=== PATIENT | male | born 1955 | race Caucasian/White ===

== ENCOUNTER 2018-03-28 11:16 | Inpatient (IN) | payer BC ==
[~2018-03-28] VITALS: Ht 170.2 cm; Wt 98.9 kg
[2018-03-28 11:20] VITALS: BP 159/78
--- NOTE | 2018-03-28 11:20 | NUR ---
PT AMBULATE WITH SON'S ASSISTANCE TO BED 10, REPORT GIVEN TO JOSE CHAUHAN
--- NOTE | 2018-03-28 11:30 | NUR ---
62Y/M BIB SON WITH C/O RT SIDED WEAKNESS SINCE 0100 THIS MORNING. PT STATES " HE STARTED HAVING CP AT 0100 THIS MORNING, MECHNICAL FALL WHILE GOING TO THE BATHROOM THIS MORNING AT 0600, FELT DIZZINESS AFTER FALL, NO LOC AT THE TIME OF FALL. PT HAS NO CP AT THIS TIME, PT DOES FEEL WEAKNESS TO THE RIGHT ARM." PT DENIES V/D; SKIN IS PINK/WARM/DRY; AAOX4 WITH EVEN AND STEADY GAIT; LUNGS CLEAR BL; HR EVEN AND REGULAR; PT DENIES ANY FEVER, CP, SOB, OR COUGH AT THIS TIME; PATIENT STATES PAIN OF 0/10 AT THIS TIME; VSS; PATIENT POSITIONED FOR COMFORT; HOB ELEVATED; BEDRAILS UP X; BED DOWN. ER MD MADE AWARE OF PT STATUS. HX; DM, HTN RX; GLYBURIDE, TAMSULOSIN, DOXAZOSIN, AMLOPIDINE
--- NOTE | 2018-03-28 11:45 | NUR ---
Patient being evaluated by physician at bedside.
--- NOTE | 2018-03-28 11:46 | NUR ---
pt taken to ct
--- NOTE | 2018-03-28 11:56 | NUR ---
pt back from ct
[2018-03-28 12:17] LABS: BASOPHILS # (AUTO) 0.1 K/uL (0.00-0.22); BASOPHILS % (AUTO) 1.1 % (0.0-2.0); EOSINOPHILS # (AUTO) 0.1 K/uL (0-0.4); EOSINOPHILS % (AUTO) 0.9 % (0.0-4.0); HEMATOCRIT 42.9 % (36-52); HEMOGLOBIN 14.5 g/dL (12.0-18.0); LYMPHOCYTES # (AUTO) 1.4 K/uL (2.0-11.5); LYMPHOCYTES % (AUTO) 19.9 % (20.5-51.1); MEAN CORPUSCULAR HEMOGLOBIN 31 pg (27-31); MEAN CORPUSCULAR HGB CONC 34 g/dL (33-37); MEAN CORPUSCULAR VOLUME 90.4 fL (80-94); MONOCYTES # (AUTO) 0.5 K/uL (0.8-1.0); MONOCYTES % (AUTO) 7.1 % (1.7-9.3); NEUTROPHILS # (AUTO) 5.1 K/uL (1.8-7.7); PLATELET COUNT (AUTO) 252 K/uL (140-450); RED BLOOD CELL COUNT(AUTO) 4.75 MIL/uL (4.20-6.10); RED CELL DISTRIBUTION WIDTH 13.3 % (11.6-13.7); WHITE BLOOD COUNT (AUTO) 7.2 K/uL (4.8-10.8)
[2018-03-28 12:39] LABS: ANION GAP 13.8 (8-16); CARBON DIOXIDE 26.6 mmol/L (21-32); CREATININE 0.9 mg/dL (0.7-1.3); POTASSIUM 3.4 mmol/L (3.5-5.1)
[2018-03-28 12:44] LABS: ALBUMIN 3.8 g/dL (3.4-5.0); TOTAL BILIRUBIN 0.2 mg/dL (0.0-1.0)
[2018-03-28 12:50] LABS: PROTHROMBIN TIME 10.7 secs (10.8-13.4)
[2018-03-28] MEDS ORDERED: ZOLPIDEM 5 MG TAB PO PRN (13:30)
[2018-03-28] MEDS ORDERED: DOCUSATE SODIUM 100 MG GELCAP PO PRN (13:30)
[2018-03-28] MEDS ORDERED: LORazepam 2 MG/ML VIAL IM/IVP PRN (13:30)
[2018-03-28] MEDS ORDERED: MORPHINE SULFATE 2 MG/ML SYR IVP PRN (13:30)
[2018-03-28] MEDS ORDERED: ONDANSETRON 4 MG/2 ML VIAL IM/IVP PRN (13:30)
[2018-03-28] MEDS ORDERED: ACETAMINOPHEN 325 MG TAB PO PRN (13:30)
[2018-03-28] MEDS ORDERED: HYDROcodone/APAP 5/325 MG 1 TAB TAB PO PRN (13:30)
[2018-03-28] MEDS ORDERED: ASPIRIN 325 MG TABEC PO ONE (13:40)
[2018-03-28 14:35] LABS: MAGNESIUM 1.7 mg/dL (1.8-2.4); THYROID STIMULATING HORMONE 1.24 uIU/mL (0.34-3.74)
--- NOTE | 2018-03-28 14:44 | NUR ---
Patient will be admitted to care of . Admited to tele floor. Will go to room 106 a. Belongings list completed. Report to delmy malik.
[2018-03-28] MEDS ORDERED: MECLIZINE 25 MG TAB PO PRN (15:05)
[2018-03-28 15:15] VITALS: BP 152/71
--- NOTE | 2018-03-28 15:15 | NUR ---
PATIENT ADMITTED TO THE UNIT. PATIENT AWAKE, ALERT AND ORIENTED. NO S/S OF DISTRESS. PATIENT ON ROOM AIR NO SOB. PATIENT DENIES PAIN AT THIS TIME. RIGHT SIDED WEAKNESS NOTED. PATIENT ABLE TO AMBULATE WITH ASSIST. NO FACIAL DROOP NOTED. PATIENT PLACED ON TELE MONITORING. BED LOWERED WITH CALL LIGHT WITHIN REACH. WILL CONTINUE TO MONITOR
[2018-03-28] MEDS ORDERED: MAG SULF 2000 MG/WATER PREMIX 50 ML IV ONE (16:30)
--- NOTE | 2018-03-28 16:57 | NUR ---
RECEIVED ORDER FOR MRI STAT. I CALLED GEORGE FROM RADIOLOGY AND SHE INFORMED ME THAT HER TECH FOR THE MRI LEAVES AT 6P.M., BU THEY COULD DO THE MRI IN THE MORNING. I CALLED DR. BAUM AND INFORMED HIM. I ALSO CALLED [facility]ULI[facility] GODOY,AND SPOKE CATARINO THE ROLL UP MACHINE OPERATOR. AND THEIR TECH FOR THE MRI WORKS ONLY M-F 8A.M. TIL 12P.M. I INFORMED DR. BAUM AND SHE SAID TO TRY TO TRANSFER THIS PATIENT TO [facility] OR [facility]. I CALL [facility] AND SPOKE WITH SANDY. THEY HAVE NO TELE BEDS. SHE DIDN'T TAKE THE PATIENT'S NAME AND INFORMATION. I CALLED [facility] AND SPOKE WITH KRISTAL. I FAXED HER FACE SHEET. SHE SAID SHE STILL NEEDS AN ACCEPTING PHYSICIAN TO CALL. AT PRESENT THEY HAVE NO TELEMETRY BEDS. I ASKED KRISTAL IF WE COULD SENT THE PATIENT TO [facility] JUST TO GET THE MRI. THEY CANNOT, SHE HAD ME SPEAK WITH SANDY THE ROLL UP MACHINE OPERATOR. SHE SAID SHE MIGHT HAVE A BED IN A COUPLE OF HOURS BUT STILL NEEDS AN ACCEPTING PHYSICIAN TO CALL THEM. I INFORMED DR. BAUM AND HE SAID HE WOULD CALL DR. LAGUERRE. DR. BAUM CALLED ME AND SAID THAT DR. LAGUERRE WILL ACCEPT THE PATIENT AND HE WILL CALL ADMITTING AT [facility]. I CALLED [facility] AND INFORMED SANDY THAT DR. LAGUERRE WILL BE CALLING TO BE THE ACCEPTING. I CALLED ADMITTING AND SPOKE WITH KRISTAL AND INFORMED HER TO CALL THE FLOOR WHEN THEY GET A BED., [phone].
[2018-03-28] MEDS: DEXT 5% / NACL 0.45% 1,000 ML IV SCH (17:02)
[2018-03-28] MEDS ORDERED: KCL 20 MEQ/WATER INJ PREMIX 100 ML IV SCH (17:30)
[2018-03-28] MEDS ORDERED: glyBURIDE 5 MG TAB PO SCH (18:45)
[2018-03-28] MEDS ORDERED: metFORMIN 500 MG TAB PO SCH (18:45)
[2018-03-28] MEDS ORDERED: TAMSULOSIN 0.4 MG CAP PO SCH (18:45)
[2018-03-28] MEDS ORDERED: GLYB1TAB2 PO (18:52)
[2018-03-28] MEDS ORDERED: DOXA2TAB1 PO (18:52)
[2018-03-28] MEDS ORDERED: TAMS0.4C96 PO (18:52)
[2018-03-28] MEDS ORDERED: AMLO10TA1 PO (18:52)
--- NOTE | 2018-03-28 19:20 | NUR ---
PATIENT REPORT GIVEN AT BEDSIDE. PATIENT ENDORSED IN STABLE CONDITION
--- NOTE | 2018-03-28 19:21 | NUR ---
REPORT RECEIVED FROM AM NURSE AT BEDSIDE. PT IN STABLE CONDITION. AAOX4. INTRODUCED SELF TO PT AND FAMILY. PT IS FALL RISK DUE TO RIGHT SIDED WEAKNESS R/T DX OF CVA. IV SITE L HAND 22G RUNNING D5 1/2NS @60ML/HR AND IS PATENT AND INTACT. SKIN WARM, DRY, AND INTACT WITH NO OPEN WOUNDS. BED LOCKED IN LOW POSITION. CALL GRIFFIN WITHIN REACH.
[2018-03-28 20:00] VITALS: BP 156/88
[2018-03-28] MEDS: glyBURIDE 5 MG TAB PO SCH (20:00)
[2018-03-28] MEDS ORDERED: TAMSULOSIN 0.4 MG CAP ONE (20:02)
[2018-03-28] MEDS ORDERED: metFORMIN 500 MG TAB ONE (20:04)
--- NOTE | 2018-03-28 20:05 | NUR ---
GLUCOPHAGE AND FLOMAX GIVEN. PT TOLERATED WELL. GLYBURIDE NOT GIVEN DUE TO PYXIS NOT ALLOWING ME TO PULL IT OUT. PHARMACY WAS CALLED AND NOTIFIED ABOUT THE PROBLEM. COULD NOT FIX. Addendum: 03/29/18 at 0342 by Osmani Boggs RN FIRST DOSE OF MAG WAS GIVEN.
[2018-03-28] MEDS: metFORMIN 500 MG TAB PO SCH (20:08)
[2018-03-28] MEDS: TAMSULOSIN 0.4 MG CAP PO SCH (20:09)
[2018-03-28] MEDS: MAGNESIUM SULFATE 1GM in DEXTROSE 5% 100 ML PREMIX IV SCH ×2 (20:09→21:51)
--- NOTE | 2018-03-28 21:50 | NUR ---
SECOND BAG OF MAG HUNG. PT TOLERATED WELL.
--- NOTE | 2018-03-28 22:45 | NUR ---
CRITICAL LAB VALUE CALLED IN FROM LAB. TROPONIN [phone]. MD NOTIFIED. NO NEW ORDERS.
--- NOTE | 2018-03-28 23:00 | NUR ---
SAT PT UP AND AIDED HIM IN USING THE URINAL. PT ABLE TO CLEAN HIMSELF WITH TOWELETTES.
[2018-03-29] VITALS: BP 155/72
--- NOTE | 2018-03-29 02:30 | NUR ---
PT REQUESTED HELP FOR USING URINAL IN BED. SAT HIM AT THE EDGE OF THE BED. PT USED WIPES TO CLEAN HIMSELF.
[2018-03-29 04:00] VITALS: BP 157/77
--- NOTE | 2018-03-29 04:30 | NUR ---
PT VS STABLE. NO S/S OF DISTRESS.
[2018-03-29 07:01] LABS: BASOPHILS # (AUTO) 0.1 K/uL (0.00-0.22); BASOPHILS % (AUTO) 1.3 % (0.0-2.0); EOSINOPHILS # (AUTO) 0.2 K/uL (0-0.4); EOSINOPHILS % (AUTO) 3.2 % (0.0-4.0); HEMATOCRIT 41.8 % (36-52); HEMOGLOBIN 14.1 g/dL (12.0-18.0); LYMPHOCYTES % (AUTO) 28.8 % (20.5-51.1); MEAN CORPUSCULAR HEMOGLOBIN 31 pg (27-31); MEAN CORPUSCULAR HGB CONC 34 g/dL (33-37); MEAN CORPUSCULAR VOLUME 91.3 fL (80-94); MONOCYTES # (AUTO) 0.6 K/uL (0.8-1.0); MONOCYTES % (AUTO) 8.1 % (1.7-9.3); NEUTROPHILS % (AUTO) 58.6 % (42.2-75.2); PLATELET COUNT (AUTO) 244 K/uL (140-450); RED BLOOD CELL COUNT(AUTO) 4.58 MIL/uL (4.20-6.10); RED CELL DISTRIBUTION WIDTH 13.3 % (11.6-13.7); WHITE BLOOD COUNT (AUTO) 6.9 K/uL (4.8-10.8)
--- NOTE | 2018-03-29 07:25 | NUR ---
REPORT GIVEN TO AM NURSE AT BEDSIDE. PT IN STABLE CONDITION.
--- NOTE | 2018-03-29 07:26 | NUR ---
RECEIVED SBAR REPORT FROM NIGHT RN AT PT BEDSIDE. PATIENT IS ALERT AND ORIENTED. DENIES PAIN. ON ROOM AIR, NO S/S OF ACUTE DISTRESS NOTED. PATIENT ADMITTED CVA WITH RIGHT SIDED WEAKNESS. PATIENT HAS MODERATE STRENGTH BUE/BLE. PATIENT STATES FEELING WEAKER ON RIGHT SIDE. SYMMETRICAL FACIAL MOVEMENTS WITH SMILE, FALL PRECAUTION IN PLACE. PATIENT IS AMBULATORY WITH ASSIST. IV SITE PATENT AND INTACT. CALL LIGHT WITHIN REACH. PATIENT SCHEDULED FOR TRANSFER FOR MRI PROCEDURE.
--- NOTE | 2018-03-29 07:36 | NUR ---
CALLED GEORGE FROM [facility] ABOUT MRI. SHE SAID TO SCHEDULE KAR[facility] BRIAN AND FAX ORDER AND INFORMATION TO [facility] AT [phone]. I CALLED SANDY AT RADIOLOGY AND FAXED INFORMATION. I CALLED KARIN AND SET UP ALS PICKUIP FOR 1 HOUR. I CALLED SANDY AT [facility] AND INFORMED HER OF THE TIME OF PICKUP. Addendum: 03/29/18 at 0758 by Nancy Jackson CM LESLIE HDZ [facility], NOT SANDY
[2018-03-29 08:00] VITALS: BP 169/86
[2018-03-29] MEDS: metFORMIN 500 MG TAB PO SCH ×3 (08:00→16:29)
[2018-03-29] MEDS: glyBURIDE 5 MG TAB PO SCH ×3 (08:00→16:29)
[2018-03-29 08:27] LABS: T4 (THYROXINE) 6.5 ug/dL (4.5-12.0)
--- NOTE | 2018-03-29 08:40 | NUR ---
MEDICATED ORDERED WITH ATIVAN PO FOR ANXIETY. PATIENT PICKED UP BY [facility]. NO ACUTE DISTRESS NOTED.
--- NOTE | 2018-03-29 08:41 | NUR ---
RECEIVED A CALL FROM GEORGE FROM [facility]. SHE SAID THE PATIENT PUT ON HIS QUESTIONNAIRE THAT HE WAS CLAUSTRIPHOBIC DR. SAUER AND I SPOKE WITH THE PATIENT AND HE SAID HE WAS OKAY, SINCE HE HAD CT'S WITH NO PROBLEM. DR. GONSALEZ LATER SPOKE WITH THE PATIENT AND THE PATIENT WAS AGREEABLE TO TAKE SOMETHING TO HELP HIM RELAX, I CALLED [facility] AND INFORMED RODNEY THAT HE WAS TAKING SOMETHING TO HELP HIM RELAX. SHE SAID TO HAVE [facility] STOP IN ADMITTING FIRST, THEN TO OP SURGERY UNTIL THE TECH GET THERE.
[2018-03-29] MEDS ORDERED: LORazepam 1 MG TAB PO SCH (08:45)
--- NOTE | 2018-03-29 08:48 | NUR ---
RECEIVED A CALL EARLIER FROM ADMITTING AT [facility] AND I GAVE THEM THE POLICY NUMBER FOR THIS PATIENT FOR [facility].
[2018-03-29 08:57] LABS: ANION GAP 13.6 (8-16); CHOL/HDL RATIO 5.3 (1-4.5); CREATININE 0.9 mg/dL (0.7-1.3); POTASSIUM 3.6 mmol/L (3.5-5.1)
[2018-03-29 09:00] LABS: MAGNESIUM 2.4 mg/dL (1.8-2.4); PHOSPHORUS 2.8 mg/dL (2.5-4.9)
[2018-03-29] MEDS ORDERED: ASPIRIN 325 MG TABEC PO SCH (09:00)
--- NOTE | 2018-03-29 09:00 | NUR ---
SPOKE WITH PATIENT'S SON BUZZ AUSTINIbis UPDATED WITH CURRENT PLAN OF CARE, IN AGREEMENT.
--- NOTE | 2018-03-29 09:25 | NUR ---
PATIENT HAS BEEN SCREENED AND CATEGORIZED MODERATE NUTRITION RISK. PATIENT WILL BE SEEN WITHIN 3-5 DAYS OF ADMISSION. 03/31/18 - 04/02/[address]
[2018-03-29 12:00] VITALS: BP 152/83
[2018-03-29] MEDS ORDERED: DEXTROSE 50% 50 ML SYR IVP PRN ×2 (12:55→15:20)
--- NOTE | 2018-03-29 13:00 | NUR ---
PATIENT RETURNED FROM [facility] FOR MRI. PATIENT ALERT AND ORIENTED. DENIES DISCOMFORT. PATIENT STATES FEELING DIZZY STILL FROM MEDICATION PRIOR. NO ACUTE DISTRESS NOTED, ON ROOM AIR. RESULTS GIVEN TO RADIOLOGY.
[2018-03-29] MEDS: DEXT 5% / NACL 0.45% 1,000 ML IV SCH (13:08)
[2018-03-29] MEDS: DOXAZOSIN 2 MG TAB PO SCH (13:09)
[2018-03-29] MEDS: TAMSULOSIN 0.4 MG CAP PO SCH (13:10)
[2018-03-29] MEDS: amLODIPine 5 MG TAB PO SCH (13:10)
--- NOTE | 2018-03-29 13:20 | NUR ---
MRI RESULTS GIVEN TO DR. BAUM. SPOKE WITH DR. FUENTES AWAITING ORDERS.
[2018-03-29] MEDS ORDERED: hePARIN / DEXT 5% PREMIX 250 ML IV SCH (14:15)
[2018-03-29] MEDS ORDERED: HEPARIN PER PHARMACY MC PRN ×2 (14:15)
[2018-03-29] MEDS ORDERED: ATORVASTATIN 80 MG TAB PO SCH (15:15)
[2018-03-29] MEDS ORDERED: CALCIUM CARB/VIT-D 500 MG/200 IU 1 TAB PO SCH (15:18)
[2018-03-29] MEDS ORDERED: INSULIN LISPRO SLIDING SCALE 100 UNITS/ML VIAL SUBQ PRN (15:20)
[2018-03-29 16:00] VITALS: BP 160/86
--- NOTE | 2018-03-29 16:20 | NUR ---
PATIENT'S FAMILY AT BEDSIDE. DR. LOMELI SPOKE WITH PATIENT AND FAMILY AT BEDSIDE REGARDING PLAN OF CARE AND TEST RESULTS. PT AND FAMILY HAD OPPORTUNITIES TO ASK QUESTIONS AND CONCERNS, ALL NEEDS MET.
[2018-03-29] MEDS: NACL 0.9% 1,000 ML IV SCH (16:24)
[2018-03-29] MEDS: INSULIN LISPRO SLIDING SCALE 100 UNITS/ML VIAL SUBQ PRN ×2 (16:28→20:37)
[2018-03-29] MEDS: BLOOD GLUCOSE MONITORING 1 DEV DEV FS SCH ×4 (16:29→20:38)
[2018-03-29] MEDS ORDERED: BLOOD GLUCOSE MONITORING 1 DEV DEV FS SCH (16:30)
[2018-03-29] MEDS ORDERED: ASPIRIN 81 MG TAB.CHEW PO SCH (17:59)
[2018-03-29] MEDS ORDERED: LISINOPRIL 5 MG TAB PO SCH (18:00)
--- NOTE | 2018-03-29 18:38 | NUR ---
PATIENT RESTING IN BED. NEURO CHECKS PERFORMED, CONTINUES TO HAVE GENERALIZED WEAKNESS RUE/RLE. CLEAR SPEECH. SYMMETRY IN FACIAL MOVEMENTS.
--- NOTE | 2018-03-29 19:13 | NUR ---
SBAR REPORT GIVEN TO JOSE RACHEL AT PT BEDSIDE. NO ACUTE DISTRESS NOTED. PATIENT SEEN AMBULATING WITH ASSIST.
--- NOTE | 2018-03-29 19:14 | NUR ---
REPORT RECEIVED FROM AM NURSE AT BEDSIDE. PT IN STABLE CONDITION. AAO4. INTRODUCED SELF AND BOARD UPDATED. PT WENT TO [place] FOR AN MRI EARLIER TODAY AND WILL BE HERE FOR A FEW NIGHTS. MRI SHOWED LEFT SIDED INFARCTION. IV SITE R HAND 22G PATENT AND INTACT RUNNING NS@80ML/HR. SKIN WARM, DRY, AND INTACT WITH NO OPEN WOUNDS. BED LOCKED IN LOW POSITION. CALL GRIFFIN WITHIN REACH.
[2018-03-29 20:00] VITALS: BP 140/83
--- NOTE | 2018-03-29 20:35 | NUR ---
BS TAKEN. BS 151. 2 UNITS OF HUMALOG GIVEN. PT TOLERATED WELL.
--- NOTE | 2018-03-29 22:49 | NUR ---
REPORT GIVEN TO TAYLOR GARCIA FOR CONTINUITY OF CARE. PT IN STABLE CONDITION.
--- NOTE | 2018-03-29 22:50 | NUR ---
RECEIVED PT FROM [place]. PT IN STABLE CONDITION.
--- NOTE | 2018-03-29 23:53 | NUR ---
PT VS WITHIN NORMAL LIMITS. PT IS AT BEDSIDE USING URINAL. NO C/O PAIN AT THIS TIME. WILL CONTINUE TO MONITOR PT.
[2018-03-30] VITALS: BP 104/77
--- NOTE | 2018-03-30 01:10 | NUR ---
NEW IV STARTED IN R HAND 22G. L HAND IV DISCONTINUED. CANULA INTACT. PT TOLERATED WELL. WILL CONTINUE TO MONITOR.
--- NOTE | 2018-03-30 03:13 | NUR ---
PT ASLEEP IN BED. NO S/SX OF DISTRESS. WILL CONTINUE TO MONITOR.
[2018-03-30 04:00] VITALS: BP 117/74
[2018-03-30] MEDS: NACL 0.9% 1,000 ML IV SCH ×2 (05:13→18:28)
[2018-03-30] MEDS: BLOOD GLUCOSE MONITORING 1 DEV DEV FS SCH ×5 (05:15→21:20)
--- NOTE | 2018-03-30 05:15 | NUR ---
BS CHECKED, 129. PER MD ORDERS NO COVERAGE NEEDED. WILL CONTINUE TO MONITOR.
[2018-03-30 06:45] LABS: BASOPHILS # (AUTO) 0.1 K/uL (0.00-0.22); BASOPHILS % (AUTO) 1.1 % (0.0-2.0); EOSINOPHILS # (AUTO) 0.3 K/uL (0-0.4); EOSINOPHILS % (AUTO) 3.9 % (0.0-4.0); HEMATOCRIT 41.5 % (36-52); LYMPHOCYTES % (AUTO) 24.5 % (20.5-51.1); MEAN CORPUSCULAR HEMOGLOBIN 31 pg (27-31); MEAN CORPUSCULAR HGB CONC 34 g/dL (33-37); MEAN CORPUSCULAR VOLUME 90.8 fL (80-94); MONOCYTES # (AUTO) 0.7 K/uL (0.8-1.0); MONOCYTES % (AUTO) 8.1 % (1.7-9.3); NEUTROPHILS % (AUTO) 62.4 % (42.2-75.2); PLATELET COUNT (AUTO) 238 K/uL (140-450); RED BLOOD CELL COUNT(AUTO) 4.57 MIL/uL (4.20-6.10); RED CELL DISTRIBUTION WIDTH 13.2 % (11.6-13.7); WHITE BLOOD COUNT (AUTO) 8.1 K/uL (4.8-10.8)
--- NOTE | 2018-03-30 07:15 | NUR ---
ENDORSED PT TO DAY SHIFT NURSE FOR CONTINUITY OF CARE. PT IN STABLE CONDITION.
--- NOTE | 2018-03-30 07:16 | NUR ---
RECEIVED REPORT FROM SHARE HOLDER NURSE TYALOR AT BEDSIDE FOR CONTINUITY OF CARE. PT IS AAOX4. INTRODUCED SELF AND UPDATED BOARD. PT DENIES PAIN. REPORTED HE WAS HERE FOR R SIDED WEAKNESS ON R ARM. MILD WEAKNESS ON R ARM. PT ABLE TO GRASP HANDS AND PUSH AGAINST GRAVITY. NO SOB. NO COUGH. O2 SAT 95% ON RA. IV TO R HAND 22G INTACT. NS @80ML/HR. NO COMPLAINTS AT THIS TIME. CALL LIGHT WITHIN REACH. BED IN LOW POSITION, WHEELS LOCKED. WILL CONTINUE TO MONITOR.
[2018-03-30 07:32] LABS: ANION GAP 12.1 (8-16); CARBON DIOXIDE 26.2 mmol/L (21-32); CREATININE 0.8 mg/dL (0.7-1.3); POTASSIUM 3.3 mmol/L (3.5-5.1)
[2018-03-30 07:37] LABS: PHOSPHORUS 3.6 mg/dL (2.5-4.9)
[2018-03-30 07:49] VITALS: BP 129/51
--- NOTE | 2018-03-30 08:18 | NUR ---
REPORTED TO DR. BAUM PT'S K 3.3, WILL WAIT FOR ORDERS.
[2018-03-30] MEDS: INSULIN LANTUS 100 UNITS/ML 10 ML VIAL SUBQ SCH (08:39)
[2018-03-30] MEDS: ATORVASTATIN 80 MG TAB PO SCH (08:40)
[2018-03-30] MEDS: glyBURIDE 5 MG TAB PO SCH ×3 (08:41→17:22)
[2018-03-30] MEDS: amLODIPine 5 MG TAB PO SCH (08:41)
[2018-03-30] MEDS: TAMSULOSIN 0.4 MG CAP PO SCH (08:41)
[2018-03-30] MEDS: metFORMIN 500 MG TAB PO SCH ×3 (08:41→17:22)
[2018-03-30] MEDS: DOXAZOSIN 2 MG TAB PO SCH (08:43)
[2018-03-30] MEDS ORDERED: KCL 20 MEQ/WATER INJ PREMIX 100 ML IV SCH (09:00)
[2018-03-30] MEDS ORDERED: ATORVASTATIN 80 MG TAB PO SCH (09:00)
[2018-03-30] MEDS ORDERED: ASPIRIN 81 MG TAB.CHEW PO SCH (09:00)
[2018-03-30] MEDS ORDERED: LISINOPRIL 5 MG TAB PO SCH (09:00)
--- NOTE | 2018-03-30 09:19 | NUR ---
PT UP WITH PHYSICAL THERAPY. SEEN WALKING DOWN HALLWAY WITH STEADY GAIT. NO SIGNS OF DISTRESS. WILL CONTINUE TO MONITOR.
--- NOTE | 2018-03-30 11:48 | NUR ---
CM NOTE SPOKE WITH PEREZ OF [facility] PH# [phone] WHO SAID THE ASSIGNED NURSE IS MAGUI BrightIbis PH# [phone]. LEFT MESSAGE FOR [facility] OF ASSIGNED NURSE [place] MAGUI Johnston RECEIVED CALL FROM [facility] ASSIGNED NURSE AFSANEH Johnston WHO SAID TO FAX ORDER TO [phone] AND TO CALL THEIR PROVIDER LINE PH# [phone] TO REQUEST FOR A NEW CASE ID NUMBER FOR THE ORDER FOR CASA LIGIA EVAL. PER [facility] ASSIGNED NURSE MAGUI Johnston HE WOULD NEED A NEW CASE ID NUMBER BEFORE HE CAN START LOOKING AT THE REQUEST. SPOKE WITH FRANCISCO OF [facility] PH# [phone] TO REQUEST FOR CASE ID NUMBER FOR THE ORDER FOR CASA LIGIA EVAL. PER FRANCISCO [facility] THE CASE ID#/REFERENCE# [id number]. FAXED ORDER FOR CASA LIGIA EVAL TO [facility] [phone]. Addendum: 03/30/18 at 1214 by Romana Ramos CM NEW PICKENS
[2018-03-30 12:00] VITALS: BP 153/76
[2018-03-30] MEDS: INSULIN LISPRO SLIDING SCALE 100 UNITS/ML VIAL SUBQ PRN ×2 (12:07→20:44)
--- NOTE | 2018-03-30 12:29 | NUR ---
ADMINISTERED SCHEDULED MEDS. PT'S BS WAS 225. ADMINISTERED 4UNITS INSULIN SUBQ. PT TOLERATED WELL. PROVIDED TEACHING ON MEDS FOR DM AND GLYCEMIC CONTROL. PT VERBALIZED UNDERSTANDING. LYING IN BED NOW. NO COMPLAINTS AT THIS TIME. WILL CONTINUE TO MONITOR.
--- NOTE | 2018-03-30 13:00 | NUR ---
Router Operator Pin Notes: I faxed to Etienne Strange at Patient's Clinical Information and MD order for Physical Therapy Evaluation.
--- NOTE | 2018-03-30 13:55 | NUR ---
Sequins Slinger Notes: I faxed to Etienne Strange at patient's Clinical Information and MD order for Physical Therapy Evaluation.
--- NOTE | 2018-03-30 14:28 | NUR ---
PT GOT UP TO USE RESTROOM. WALKED WITH STEADY GAIT. INFORMED PT ON HOW TO CHARGE IV MACHINE WHEN IN USE. VERBALIZED UNDERSTANDING. NO SIGNS OF DISTRESS. CALL LIGHT WITHIN REACH. WILL CONTINUE TO MONITOR.
--- NOTE | 2018-03-30 14:32 | NUR ---
CLINICAL REVIEW FAXED TO [facility] AT [phone]
--- NOTE | 2018-03-30 15:00 | NUR ---
Clinical Athletic Instructor Notes: I contacted Etienne Strange at , I spoke to Angie at admissions to confirm if patient's Clinical information and MD order for P.T Evaluation was received. Per Angie faxed was received, stated that he has reviewed all information and will be meeting with Patient tomorrow 03/31/18 at about 10:00am for his P.T Evaluation.
--- NOTE | 2018-03-30 15:30 | NUR ---
FOUND PT HAD IV TO R HAND 22G OUT. IV CATHETER TIP INTACT. NO BLEEDING ON SITE. STARTED NEW IV TO L HAND 24G. PT TOLERATING WELL. WILL CONTINUE TO MONITOR.
[2018-03-30 16:00] VITALS: BP 140/66
--- NOTE | 2018-03-30 17:15 | NUR ---
PT SITTING IN BED. FAMILY AT BEDSIDE. NO SIGNS OF DISTRESS. CALL LIGHT WITHIN REACH. WILL CONTINUE TO MONITOR.
--- NOTE | 2018-03-30 19:15 | NUR ---
ENDORSED PT TO FISH HATCHERY ASSISTANT NURSE HEIDI AT BEDSIDE FOR CONTINUITY OF CARE. PT IN STABLE CONDITION.
--- NOTE | 2018-03-30 19:16 | NUR ---
RECEIVED PT AWAKE ON BED TALKING TO FAMILY MEMBERS AT BEDSIDE, VITAL SIGNS STABLE, DENIES PAIN OR DIZZINESS, PT WITH RT ARM WEAKNESS BUT ABLE TO GRASP THINGS, K-RIDER INFUSING WELL BUT ON SLOWER RATE, PLAN OF CARE DISCUSS, SAFETY MEASURES IN PLACE, CALL LIGHT WITHIN REACH.
[2018-03-30 20:00] VITALS: BP 142/69
[2018-03-30] MEDS: CARVEDILOL 6.25 MG TAB PO SCH (20:37)
[2018-03-30] MEDS ORDERED: SPIRONOLACTONE 25 MG TAB PO SCH (21:00)
--- NOTE | 2018-03-30 21:00 | NUR ---
PT VOIDING FREELY PER URINAL, BLOOD SUGAR CHECK WITH 160 RESULT, COVERAGE GIVEN, BEDTIME SNACK PROVIDED, DUE EMDS ADMINISTERED WITH EDUCATION PROVIDED, ALL NEEDS ATTENDED.
--- NOTE | 2018-03-30 22:40 | NUR ---
K-DONAL DONE, RESUMED IVF OF NS AT 60ML/H, MONITORED CLOSELY.
[2018-03-31] VITALS: BP 142/85
--- NOTE | 2018-03-31 | NUR ---
PT SLEEPING, EASILY AROUSABLE, VITAL SIGNS STABLE, DENIES ANY PAIN, IVF INFUSING WELL, CONTINUE TO MONITOR CLOSELY.
--- NOTE | 2018-03-31 03:50 | NUR ---
PT SLEEPING, EASILY AROUSABLE, VITAL SIGNS STABLE, DENIES PAIN, IVF INFUSING WELL, MONITORED CLOSELY.
[2018-03-31 04:00] VITALS: BP 129/57
--- NOTE | 2018-03-31 05:50 | NUR ---
BLOOD SUGAR CHECKED WITH 92 RESULT, VOIDED FREELY PER URINAL, URINE SENT TO LAB FOR TEST, MONITORED CLOSELY.
[2018-03-31 06:46] LABS: BASOPHILS # (AUTO) 0.1 K/uL (0.00-0.22); BASOPHILS % (AUTO) 1.2 % (0.0-2.0); EOSINOPHILS # (AUTO) 0.3 K/uL (0-0.4); EOSINOPHILS % (AUTO) 5.5 % (0.0-4.0); HEMATOCRIT 40.5 % (36-52); HEMOGLOBIN 13.9 g/dL (12.0-18.0); LYMPHOCYTES # (AUTO) 1.9 K/uL (2.0-11.5); LYMPHOCYTES % (AUTO) 31.1 % (20.5-51.1); MEAN CORPUSCULAR HEMOGLOBIN 31 pg (27-31); MEAN CORPUSCULAR HGB CONC 34 g/dL (33-37); MEAN CORPUSCULAR VOLUME 90.5 fL (80-94); MONOCYTES # (AUTO) 0.6 K/uL (0.8-1.0); MONOCYTES % (AUTO) 9.4 % (1.7-9.3); NEUTROPHILS # (AUTO) 3.3 K/uL (1.8-7.7); NEUTROPHILS % (AUTO) 52.8 % (42.2-75.2); PLATELET COUNT (AUTO) 241 K/uL (140-450); RED BLOOD CELL COUNT(AUTO) 4.47 MIL/uL (4.20-6.10); RED CELL DISTRIBUTION WIDTH 12.8 % (11.6-13.7); WHITE BLOOD COUNT (AUTO) 6.2 K/uL (4.8-10.8)
[2018-03-31] MEDS: BLOOD GLUCOSE MONITORING 1 DEV DEV FS SCH ×3 (06:52→17:17)
--- NOTE | 2018-03-31 07:15 | NUR ---
PT AWAKE, NO SIGNS OF DISTRESS, REPORT GIVEN TO JOSE HAYWOOD FOR CONTINUITY OF CARE.
[2018-03-31 07:16] LABS: ANION GAP 12.3 (8-16); CARBON DIOXIDE 26.9 mmol/L (21-32); CREATININE 0.8 mg/dL (0.7-1.3); POTASSIUM 3.2 mmol/L (3.5-5.1)
--- NOTE | 2018-03-31 07:16 | NUR ---
RECEIVED REPORT FROM TRANSPORT TECHNICIAN RN. PATIENT IS AAOX4, HAS NO SIGNS AND SYMPTOMS OF ACUTE DISTRESS NOTED AT THIS TIME. PATIENT HAS IV TO THE LEFT HAND 24G, INFUSING NS AT 60 ML/HR. SITE IS CLEAN, DRY, PATENT AND INTACT. DISCUSSED PLAN OF CARE WITH PATIENT AND HE VERBALIZED UNDERSTANDING. BED IN LOWEST POSITION, SIDE RAILS UP X2, CALL LIGHT WITHIN REACH. WILL CONTINUE TO MONITOR.
[2018-03-31 07:24] LABS: APPEARANCE,URINE CLEAR (CLEAR); BILIRUBIN,URINE NEGATIVE (NEGATIVE); BLOOD, URINE TRACE-L (NEGATIVE); COLOR,URINE YELLOW (YELLOW); LEUKOCYTE ESTERASE ,URINE 1+ (NEGATIVE); NITRITE, URINE NEGATIVE (NEGATIVE); PH,URINE 5.5 (5.0-9.0); UGLUCOSE NEGATIVE (NEGATIVE)
[2018-03-31 07:32] LABS: BARBITURATE, URINE NEG. ng/ml (NEG <=200); BENZODIAZEPINE, URINE NEG. ng/mL (NEG <=200); CANNABINOID, URINE NEG. ng/mL (NEG <=50); COCAINE, URINE NEG. ng/mL (NEG <=300); OPIATE, URINE NEG. ng/mL (NEG <=2000); PHENCYCLIDINE SCREEN,URINE NEG. ng/mL (NEG <=25)
[2018-03-31 07:37] LABS: MAGNESIUM 1.9 mg/dL (1.8-2.4); PHOSPHORUS 3.8 mg/dL (2.5-4.9)
[2018-03-31 08:00] VITALS: BP 157/92
[2018-03-31] MEDS ORDERED: KCL 20 MEQ/WATER INJ PREMIX 100 ML IV SCH (09:00)
[2018-03-31] MEDS ORDERED: ASPIRIN 325 MG TAB PO SCH (09:00)
[2018-03-31] MEDS ORDERED: FUROSEMIDE 20 MG/2 ML VIAL IVP SCH (09:00)
[2018-03-31] MEDS: glyBURIDE 5 MG TAB PO SCH ×2 (09:13→12:41)
[2018-03-31] MEDS: amLODIPine 5 MG TAB PO SCH (09:13)
[2018-03-31] MEDS: metFORMIN 500 MG TAB PO SCH ×2 (09:13→12:41)
[2018-03-31] MEDS: CARVEDILOL 6.25 MG TAB PO SCH (09:13)
[2018-03-31] MEDS: TAMSULOSIN 0.4 MG CAP PO SCH (09:14)
[2018-03-31] MEDS: ATORVASTATIN 80 MG TAB PO SCH (09:14)
[2018-03-31] MEDS: DOXAZOSIN 2 MG TAB PO SCH (09:15)
[2018-03-31] MEDS: INSULIN LANTUS 100 UNITS/ML 10 ML VIAL SUBQ SCH (09:20)
[2018-03-31 09:38] LABS: RBC,URINE 0-5 (RARE) /HPF (0-5)
[2018-03-31 12:00] VITALS: BP 133/67
[2018-03-31] MEDS ORDERED: MAGNESIUM OXIDE 400 MG TAB PO SCH (12:00)
[2018-03-31] MEDS ORDERED: LISINOPRIL 5 MG TAB PO SCH ×2 (12:00)
[2018-03-31] MEDS ORDERED: POTASSIUM CHLORIDE 10 MEQ TABER PO SCH (12:00)
[2018-03-31] MEDS: INSULIN LISPRO SLIDING SCALE 100 UNITS/ML VIAL SUBQ PRN (12:48)
--- NOTE | 2018-03-31 14:46 | NUR ---
CM NOTE PER NURSE KILGORE OF /[facility] PH# [phone], NO PRE AUTHORIZATION IS NEEDED FOR MEDICAL TRANSPORT AND NO PRE AUTHORIZATION NEEDED FOR LIFE VEST REF# [id number] PER JOSÉ MIGUEL [facility] PH# [phone], RENNY PH# [phone] WILL BE COMING BY 4PM TODAY FOR PATIENT'S LIFE VEST MEASUREMENTS. CHASTITY GARCIA AWARE PER ANDRES STRONG THEY CANNOT TAKE PATIENTS ON LIFE VEST, NURSE KILGORE OF /[facility] AWARE AND HE SAID IF THE PATIENT WILL NEED SNF TO SEND TO ANY SNF IN THE AREA THAT WILL ACCEPT PATIENT AND THAT PATIENT WILL BE AGREEABLE WITH. NEW ARDON AND DR BAUM AWARE
--- NOTE | 2018-03-31 14:57 | NUR ---
Health Actuary Notes: Angie from admissions at [facility] contact these clinical writer to see if patient's discharge can be coordinated today to their facility. I Informed to Angie that MD order was made to get a life-vest for Patient and that it will be delivered it today after 16:00 to scheduled Patient's discharge for today. Angie Stated " Patient Needs a Life-Vest?" I responded, yes; and Angie from [facility] stated " If patient has a Life-Vest we can't accept him any more" I informed to automotive general manager Romana and I transfer her the call to discuss issue.
[2018-03-31 16:00] VITALS: BP 118/52
[2018-03-31] MEDS ORDERED: MAG400 PO (16:11)
[2018-03-31] MEDS ORDERED: [UNRECOGNIZED DRUG - CODE] PO (16:11)
[2018-03-31] MEDS ORDERED: OLME5TAB PO (16:11)
[2018-03-31] MEDS ORDERED: ASPI325T49 PO (16:11)
[2018-03-31] MEDS ORDERED: CARV6.252 PO (16:11)
[2018-03-31] MEDS ORDERED: SPIR25TA PO (16:11)
[2018-03-31] MEDS ORDERED: LAS20I PO (16:11)
[2018-03-31] MEDS ORDERED: ROSU20TA PO (16:11)
[2018-03-31] MEDS ORDERED: POTA10TE30 PO (16:11)
--- NOTE | 2018-03-31 17:19 | NUR ---
PIECE WORKER HERE DROPPING OFF LIFE VEST AND EDUCATING PATIENT ON ITS USE. WILL CONTINUE TO MONITOR.
--- NOTE | 2018-03-31 18:45 | NUR ---
DISCHARGE ORDER IS IN PLACE. PATIENT WILL BE GOING HOME WITH HOME HEALTH FOR PHYSICAL THERAPY. GAVE PATIENT INSTRUCTIONS TO FOLLOW UP WITH PCP, AND HOGSHEAD INSPECTOR. INSTRUCTED HIM ON S/SX OF DISTRESS TO SEEK EMERGENCY MEDICAL ATTENTION. LET HIM KNOW THAT HE HAS A PRESCRIPTION. PATIENT VERBALIZED UNDERSTANDING. ALL BELONGINGS ARE WITH PATIENT, INCLUDING THE LIFE VEST WHICH HE IS WEARING. REMOVED IV FROM SITE. CATHETER INTACT. REMOVED ID BANDS. WILL WALK OUT WITH PATIENT. IN STABLE CONDITION AT THIS TIME.
[2018-04-01] MEDS ORDERED: LISINOPRIL 5 MG TAB PO SCH (09:00)
[2018-04-01] MEDS ORDERED: POTASSIUM CHLORIDE 10 MEQ TABER PO SCH (09:00)
[2018-04-01] MEDS ORDERED: MAGNESIUM OXIDE 400 MG TAB PO SCH (09:00)
--- NOTE | 2018-04-01 15:06 | NUR ---
LATE ENTRY CM NOTE CALLED PATIENT TO CONFIRM PATIENT'S ADDRESS AND CONTACT NUMBER FAXED HH ORDER TO /[facility] [phone] PER NURSE KILGORE OF [facility], CALL THEIR PROVIDER LINE FOR HH REQUEST SPOKE WITH [facility] PROVIDER LINE PH# [phone] WHO GAVE A LIST OF HH AGENCIES TO SEND IT TO. LIST OF HH AGENCIES GIVEN TO NEW P[facility]ERS[facility]. NEW [facility] FAXED TO THESE HH AGENCIES, NO ACCEPTING HH DUE TO NO CONTRACT WITH INSURANCE/NO STAFFING INFORMED NURSE KILGORE OF [facility] THAT WE HAVE TRIED THE HH AGENCIES THAT WAS GIVEN BY [facility] PROVIDER LINE PH# [phone], NO ACCEPTING HH PER DIANE PH# [phone] THEY ARE ACCEPTING THE PATIENT AND THEY HAVE A NURSE TO SEE PATIENT. NURSE KILGORE OF [facility] MADE AWARE
--- NOTE | 2018-04-01 15:50 | NUR ---
Bar Tacker Sewing Machine Note: Per Merly from [facility] , they don't have a contract with patient's health insurance plan, unable to accept referral. Per Deysi from [facility] , unable to accept referral, no reason given. I called [facility] , wrong number. Per Rizwana from [facility] , they don't have a contract with patient's health insurance plan, unable to accept referral. Per Viviane from [facility] , they don't have a contract with patient's health insurance plan, unable to accept referral. I faxed inquiry to [facility], fax number , phone number .
== END 2018-03-31 18:45 | disposition home health service (06) | DRG 65 ==
LOC: MED 11:16 → MTU 13:33
PROVIDERS: ADMIT General Practice; ATTEND General Practice
DX: I63.9 Cerebral infarction, unspecified (principal); I42.9 Cardiomyopathy, unspecified; E11.65 Type 2 diabetes mellitus with hyperglycemia; I10 Essential (primary) hypertension; E83.42 Hypomagnesemia; E78.5 Hyperlipidemia, unspecified; E83.51 Hypocalcemia; E87.6 Hypokalemia; F17.200 Nicotine dependence, unspecified, uncomplicated; E66.01 Morbid (severe) obesity due to excess calories; Z68.34 Body mass index [BMI] 34.0-34.9, adult; N40.0 Benign prostatic hyperplasia without lower urinary tract symptoms; E78.00 Pure hypercholesterolemia, unspecified; Z71.3 Dietary counseling and surveillance; Z71.6 Tobacco abuse counseling
CPT/HCPCS: 36415; 70450; 71045; 80048; 80053; 80305; 81001; 82150; 82948; 83036; 83690; 83735; 83880; 84100; 84134; 84436; 84443; 84484; 85025; 85610; 85730; 87081; 87086; 87186; 93005; 93880; 93925; 93970; 97110; 97116; 97140; 97530; 99285; J1644; J1815; J1940; J2060; J3480; J7030; Q0092